=== PATIENT | female | born 1990 | race Hispanic/Latino ===

== ENCOUNTER 2016-08-05 23:43 | Outpatient (CLI) | payer MEDICAID ==
[2016-08-06 01:46] VITALS: BP 106/55
[2016-08-06] MEDS ORDERED: VISTARIL PO ONE (02:56)
--- NOTE | 2016-08-06 08:17 | Ultrasound Report ---
BIOPHYSICAL PROFILE: INDICATION: Nonreassuring NST. COMPARISON: 07/03/2016. TECHNIQUE: Transabdominal ultrasound with Doppler interrogation. 2 - breathing movements 2 - movements 2 - posture and tone 2 - Qualitative amniotic fluid volume 8 - TOTAL SCORE OF POSSIBLE 8 Heart Rate (bpm) 123
== END 2016-08-06 03:08 | disposition home or self-care (01) ==
LOC: TRG 23:43
PROVIDERS: ATTEND Obstetrics & Gynecology
DX: O62.0 Primary inadequate contractions (principal); O77.9 Labor and delivery complicated by fetal stress, unspecified; Z3A.37 37 weeks gestation of pregnancy
CPT/HCPCS: 59025; 76819; Q0177

== ENCOUNTER 2019-08-01 21:47 | Emergency (ER) | payer SELFPAY ==
--- NOTE | 2019-08-01 22:43 | Event Note ---
ED Screening Note Date of service: 08/01/19 Time: 22:40 ED Screening Note: 29 y o presents with vag bleeing x today states LMP: 05/12/19 recent incarceration out 1 week ago state opoid addiction; no treatment program This initial assessment/diagnostic orders/clinical plan/treatment(s) is/are subject to change based on patients health status, clinical progression and re- assessment by fellow clinical providers in the ED. Further treatment and workup at subsequent clinical providers discretion. Patient/guardian urged not to elope from the ED as their condition may be serious if not clinically assessed and managed. Initial orders include: labs, ua US
[2019-08-01 23:24] LABS: Amorphous Crystals,Urine 1+; Bacteria,Urine 1+ /HPF (Negative); Bilirubin,Urine NEG (Negative); Blood,Urine NEG (Negative); Color,Urine Yellow (Yellow); Mucus,Urine 3+ /HPF; Protein,Urine <15 mg/dL mg/dL (Negative); Urobilinogen,Urine < 2.0 mg/dL (<2.0)
[2019-08-01 23:45] LABS: Amphetamine Screen,Urine PRESUMPTIVE NEGATIVE; Benzodiazepines Screen,Urine PRESUMPTIVE NEGATIVE; Cannabinoid Screen,Urine PRESUMPTIVE NEGATIVE; Cocaine Screen,Urine PRESUMPTIVE NEGATIVE; Methadone Screen,Urine PRESUMPTIVE NEGATIVE; Opiate Screen,Urine PRESUMPTIVE NEGATIVE
--- NOTE | 2019-08-01 23:49 | Ultrasound Report ---
US OB <= 14 weeks fetus INDICATION / CLINICAL INFORMATION: vag bleed. COMPARISON: None available. FINDINGS: Single, viable intrauterine . heart rate 166. [place]-rump length measures 28 mm, corresponding to a gestational age of 9 weeks 5 days. Both ovaries are unremarkable, containing small complex nodules. Color Doppler imaging shows normal v ascular flow in both ovaries. There is minimal free fluid. IMPRESSION: 1. Viable 9 week 5 day intrauterine . Signer Name: Bismark Mijares MD Signed: 08/01/2019 11:44 PM Workstation Name: [employer]
[2019-08-02] MEDS ORDERED: SODIUM CHLORIDE 0.9% 1000 ML 1,000 ML IV ONE (01:01)
[2019-08-02] MEDS ORDERED: METOCLOPRAMIDE 10 MG/2 ML INJ IV ONE (01:02)
--- NOTE | 2019-08-02 01:11 | Emergency Department Report ---
HPI - General Chief Complaint: Vaginal Bleeding Time Seen by Provider: 08/02/19 00:55 - HPI HPI: Room 37 The patient is a 29-year-old female presenting with a chief complaint of nausea and vomiting chills. The patient states she has a history of using Percocet and last used yesterday. Patient states she awakened this morning, shakes and chills and had nausea and vomiting. Patient admits to vaginal bleeding which began this afternoon. The patient states she is at approximately 13 weeks gestation age Location: [See above] Duration: [See above] Quality: [See above] Severity: [See above] Timing: [See above] Context: [See above] Modifying factors: [See above] Associated signs and symptoms: [see above] ED Past Medical Hx - Past Medical History Previous Medical History?: Yes Additional medical history: back pain, Vaginal delivery x2 - Surgical History Past Surgical History?: No - Family History Family history: no significant - Social History Smoking Status: Current Every Day Smoker (1 pack per day) Substance Use Type: Heroin, Other (Percocet. Denies IVDA) - Medications Home Medications: Home Medications Medication Instructions Recorded Confirmed Last Taken Type Vits96/Iron Fum/Folic 1 tab PO DAILY 07/13/13 08/29/16 07/31/13 12:00 History [ Tablet] 1 tab HYDROcodone/APAP 5-325 [[place] 1 each PO Q6HR PRN #20 tablet 08/18/13 08/29/16 Unknown Rx 5/325 mg] predniSONE [Deltasone] 20 mg PO QDAY #6 tab 09/23/13 08/29/16 Unknown Rx traMADoL [Ultram] 50 mg PO Q4HR PRN #15 tablet 09/23/13 08/29/16 Unknown Rx Metoclopramide [Reglan] 10 mg PO QID PRN #30 tablet 08/02/19 Unknown Rx ED Review of Systems ROS: Stated complaint: VOMITTING Other details as noted in HPI Constitutional: chills Eyes: denies: eye pain ENT: denies: throat pain Respiratory: no symptoms reported Cardiovascular: denies: chest pain Endocrine: no symptoms reported Gastrointestinal: nausea, vomiting Genitourinary: abnormal menses Physical Exam - Physical Exam Vital Signs: Vital Signs 08/01/19 21:52 Temperature 98.1 F Pulse Rate 92 H Respiratory 14 Rate Blood Pressure 108/57 O2 Sat by Pulse 99 Oximetry Physical Exam: GENERAL: The patient is well-developed well-nourished female sleeping on stretcher not appearing to be in acute distress. [] HEENT: Normocephalic. Atraumatic. Extraocular motions are intact. Patient has moist mucous membranes. NECK: Supple. Trachea midline CHEST/LUNGS: Clear to auscultation. There is no respiratory distress noted. HEART/CARDIOVASCULAR: Regular. There is no tachycardia. There is no gallop rub or murmur. ABDOMEN: Abdomen is soft, nontender. Patient has normal bowel sounds. There is no abdominal distention. SKIN: There is no rash. There is no edema. There is no diaphoresis. NEURO: The patient is awake, alert, and oriented. The patient is cooperative. The patient has normal speech MUSCULOSKELETAL: There is no evidence of acute injury. ED Course Vital Signs 08/01/19 21:52 Temperature 98.1 F Pulse Rate 92 H Respiratory 14 Rate Blood Pressure 108/57 O2 Sat by Pulse 99 Oximetry ED Medical Decision Making - Lab Data Result diagrams: 08/02/19 01:09 Laboratory Tests 08/01/19 08/01/19 08/02/19 22:57 22:57 01:09 WBC 11.5 H RBC 3.52 L Hgb 10.5 Hct 31.3 MCV 89 MCH 30 MCHC 33 RDW 15.2 Plt Count 265 Lymph % (Auto) 16.8 [place] % (Auto) 6.8 Eos % (Auto) 0.8 Baso % (Auto) 0.3 Lymph # 1.9 [place] # 0.8 Eos # 0.1 Baso # 0.0 Seg Neutrophils % 75.3 H Seg Neutrophils # 8.7 H HCG, Quant Urine Color Yellow Urine Turbidity Cloudy Urine pH 7.0 Ur Specific [place] 1.018 Urine Protein <15 mg/dl Urine Glucose (UA) Neg Urine Ketones Neg Urine Blood Neg Urine Nitrite Neg Urine Bilirubin Neg Urine Urobilinogen < 2.0 Ur Leukocyte Esterase Tr Urine WBC (Auto) 6.0 Urine RBC (Auto) 3.0 U Epithel Cells (Auto) 39.0 H Urine Bacteria (Auto) 1+ Amorphous Crystals 1+ Urine Mucus 3+ Urine Opiates Screen Presumptive negative Urine Methadone Screen Presumptive negative Ur Barbiturates Screen Presumptive negative Ur Phencyclidine Scrn Presumptive negative Ur Amphetamines Screen Presumptive negative U Benzodiazepines Scrn Presumptive negative Urine Cocaine Screen Presumptive negative U Marijuana (THC) Screen Presumptive negative Drugs of Abuse Note Disclamer 08/02/19 01:09 WBC RBC Hgb Hct MCV MCH MCHC RDW Plt Count Lymph % (Auto) [place] % (Auto) Eos % (Auto) Baso % (Auto) Lymph # [place] # Eos # Baso # Seg Neutrophils % Seg Neutrophils # HCG, Quant [id number] H Urine Color Urine Turbidity Urine pH Ur Specific [place] Urine Protein Urine Glucose (UA) Urine Ketones Urine Blood Urine Nitrite Urine Bilirubin Urine Urobilinogen Ur Leukocyte Esterase Urine WBC (Auto) Urine RBC (Auto) U Epithel Cells (Auto) Urine Bacteria (Auto) Amorphous Crystals Urine Mucus Urine Opiates Screen Urine Methadone Screen Ur Barbiturates Screen Ur Phencyclidine Scrn Ur Amphetamines Screen U Benzodiazepines Scrn Urine Cocaine Screen U Marijuana (THC) Screen Drugs of Abuse Note Patient documented as O+ 08/29/2016 - Differential Diagnosis threatened , opiate abuse, opiate withdrawal, hyperemesis gravidaru Critical care attestation.: If time is entered above; I have spent that time in minutes in the direct care of this critically ill patient, excluding procedure time. ED Disposition Clinical Impression: Threatened , Nausea & vomiting, Opiate abuse, continuous Disposition: DC-01 TO HOME OR SELFCARE Is pt being admited?: No Does the pt Need Aspirin: No Condition: Stable Instructions: Threatened Miscarriage (ED) Additional Instructions: Return to the emergency department should you develop worsening symptoms, inability to tolerate food or liquids, high fever or any other concerns Prescriptions: Metoclopramide [Reglan] 10 mg PO QID PRN #30 tablet PRN Reason: Nausea Referrals: [facility] [Provider Group] - 3-5 Days Time of Disposition: 02:28
[2019-08-02 01:21] LABS: Basophils % (Auto) 0.3 % (0.0-1.8); Eosinophils # (Auto) 0.1 K/mm3 (0.0-0.4); Eosinophils % (Auto) 0.8 % (0.0-4.3); Hematocrit 31.3 % (30.3-42.9); Hemoglobin 10.5 gm/dl (10.1-14.3); Lymphocytes # (Auto) 1.9 K/mm3 (1.2-5.4); Lymphocytes % (Auto) 16.8 % (13.4-35.0); Mean Corpuscular HGB Conc 33 % (30-34); Mean Corpuscular Volume 89 fl (79-97); Monocytes # (Auto) 0.8 K/mm3 (0.0-0.8); Monocytes % (Auto) 6.8 % (0.0-7.3); Platelet Count 265 K/mm3 (140-440); Red Blood Count 3.52 M/mm3 (3.65-5.03); Red Cell Distribution Width 15.2 % (13.2-15.2)
[2019-08-02 03:05] VITALS: BP 110/62
== END 2019-08-02 03:17 | disposition home or self-care (01) ==
LOC: ED 21:47
DX: O20.0 Threatened abortion (principal); O99.321 Drug use complicating pregnancy, first trimester; F11.10 Opioid abuse, uncomplicated; O99.331 Smoking (tobacco) complicating pregnancy, first trimester; F17.200 Nicotine dependence, unspecified, uncomplicated; Z91.040 Latex allergy status; Z3A.13 13 weeks gestation of pregnancy
CPT/HCPCS: 36415; 76801; 80307; 81001; 84702; 85025; 86900; 86901; 96361; 96374; 99284; J2765; J7030